=== PATIENT | male | born 1950 | race Caucasian/White ===

== ENCOUNTER → 2017-04-30 | Outpatient (CLI) | payer MEDICARE ==
--- NOTE | 2017-04-30 10:15 | RADIOLOGY REPORT PS360 ---
KNEE-4 OR 5 VIEWS-LT HISTORY: LEFT KNEE PAIN ORDERING PHYSICIAN: Rolando Cox MD PATIENT AGE: 66 years COMPARISON: None FINDINGS: Weightbearing views are performed. There are moderate to severe osteoarthritic changes of the medial compartment with loss of joint space and osteosclerosis with mild osteophyte formation. Moderate osteoarthritic changes are present at the patellofemoral joint. No acute fracture or dislocation. No lytic or blastic change. 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
== END ==
LOC: RAD 08:46
DX: M25.562 Pain in left knee (principal)